=== PATIENT | male | born 1955 | race Caucasian/White ===

== ENCOUNTER → 2017-02-22 | Outpatient (CLI) | payer BC ==
[2017-02-22 12:57] LABS: BASO % 0.4 %; BASO ABS # 0.04 K/uL (0-0.2); COMPLETE YES; EOS % 2.7 %; HEMATOCRIT 48.4 % (42-52); IG% 0.2 %; LYMPH % 23.2 %; LYMPH ABS # 2.41 K/uL (1.2-3.4); MEAN CELL VOLUME 100.6 fL (80-100); MEAN CORPUSCULAR HEMOGLOBIN 34.7 pg (25-34); MEAN CORPUSCULAR HGB CONC 34.5 g/dl (32-36); MEAN PLATELET VOLUME 10.1 fL (7.4-10.4); MONO % 6.7 %; NEUT % 66.8 %; PLATELET COUNT 271 K/uL (130-400); RED BLOOD COUNT 4.81 M/uL (4.7-6.1); WHITE BLOOD COUNT 10.38 K/uL (4.8-10.8)
[2017-02-22 13:02] LABS: ESTIMATED AVERAGE GLUCOSE 111 mg/dl; HA1C FLAG Normal (Normal)
[2017-02-22 13:08] LABS: ALT/SGPT 46 U/L (12-78); AST/SGOT 31 U/L (15-37); BLOOD UREA NITROGEN 12 mg/dl (7-18); BUN/CREATININE RATIO 14.5 (10-20); CALCIUM 8.9 mg/dl (8.5-10.1); CARBON DIOXIDE 28 mmol/L (21-32); CHLORIDE 106 mmol/L (98-107); CHOLESTEROL 156 mg/dl (0-200); CREATININE 0.85 mg/dl (0.60-1.40); GLUCOSE 112 mg/dl (70-99); POTASSIUM 4.2 mmol/L (3.5-5.1); SODIUM 139 mmol/L (136-145); TRIGLYCERIDES 51 mg/dl (0-150); VERY LOW DENSITY LIPOPROT CALC 10 mg/dl
[2017-02-22 13:11] LABS: ALKALINE PHOSPHATASE 103 U/L (45-117); HDL CHOLESTEROL 78 mg/dl
== END | disposition home or self-care (01) ==
LOC: C.LABSPEC 12:27
PROVIDERS: ATTEND Internal Medicine
DX: R73.9 Hyperglycemia, unspecified (principal); E78.5 Hyperlipidemia, unspecified

== ENCOUNTER → 2018-02-21 | Outpatient (CLI) | payer BC ==
[2018-02-21 15:13] LABS: BASO % 0.3 %; BASO ABS # 0.03 K/uL (0-0.2); EOS % 2.9 %; EOS ABS # 0.25 K/uL (0-0.5); HEMATOCRIT 46.9 % (42-52); HEMOGLOBIN 16.5 g/dL (14.0-18.0); IG# 0.02 K/uL (0.00-0.02); LYMPH % 26.9 %; LYMPH ABS # 2.36 K/uL (1.2-3.4); MEAN CELL VOLUME 98.9 fL (80-100); MEAN CORPUSCULAR HEMOGLOBIN 34.8 pg (25-34); MEAN CORPUSCULAR HGB CONC 35.2 g/dl (32-36); MEAN PLATELET VOLUME 10.1 fL (7.4-10.4); MONO ABS # 0.61 K/uL (0.11-0.59); NEUT % 62.7 %; NEUT ABS # 5.49 K/uL (1.4-6.5); PLATELET COUNT 252 K/uL (130-400); RED CELL DISTRIBUTION WIDTH CV 14.5 % (11.5-14.5); RED CELL DISTRIBUTION WIDTH SD 52.6 fL (36.4-46.3); WHITE BLOOD COUNT 8.76 K/uL (4.8-10.8)
[2018-02-21 15:35] LABS: ALBUMIN 3.6 gm/dl (3.4-5.0); ALKALINE PHOSPHATASE 83 U/L (45-117); ALT/SGPT 47 U/L (12-78); AST/SGOT 32 U/L (15-37); BLOOD UREA NITROGEN 18 mg/dl (7-18); CALCIUM 8.8 mg/dl (8.5-10.1); CARBON DIOXIDE 25 mmol/L (21-32); CHOLESTEROL 151 mg/dl (0-200); CREATININE 0.89 mg/dl (0.60-1.40); GLUCOSE 100 mg/dl (70-99); LDL CHOLESTEROL (DIRECT) 77 mg/dl; POTASSIUM 4.3 mmol/L (3.5-5.1); SODIUM 137 mmol/L (136-145); TOTAL PROTEIN 7.6 gm/dl (6.4-8.2)
[2018-02-22 05:58] LABS: HEMOGLOBIN A1C 5.7 % (4.5-5.6)
== END | disposition home or self-care (01) ==
LOC: C.LABSPEC 13:24
PROVIDERS: ATTEND Internal Medicine
DX: R73.9 Hyperglycemia, unspecified (principal); E78.5 Hyperlipidemia, unspecified; R35.0 Frequency of micturition